=== PATIENT | female | born 1955 | race Hispanic/Latino ===

== ENCOUNTER → 2023-09-11 | Outpatient (CLI) | payer OTHER, MEDICARE ==
[2023-09-11 12:21] LABS: HEMOGLOBIN A1C 6.9 % (4.0-6.0)
[2023-09-11 12:28] LABS: CREATININE 0.6 mg/dL (0.5-1.0); POTASSIUM 3.9 mmol/L (3.5-5.1)
== END | disposition home or self-care (01) ==
LOC: LAB 08:08
PROVIDERS: ATTEND Student in an Organized Health Care Education/Training Program
DX: I10 Essential (primary) hypertension (principal); E11.65 Type 2 diabetes mellitus with hyperglycemia
CPT/HCPCS: 36415; 80048; 80061; 83036

== ENCOUNTER → 2023-09-24 | Outpatient (CLI) | payer OTHER, MEDICARE | END | disposition home or self-care (01) | LOC: RAH 12:35 | PROVIDERS: ATTEND Student in an Organized Health Care Education/Training Program | DX: R07.9 Chest pain, unspecified (principal) | CPT/HCPCS: 93306 ==

== ENCOUNTER → 2023-10-22 | Outpatient (CLI) | payer OTHER, MEDICARE ==
[2023-10-22 10:21] LABS: CREATININE 0.7 mg/dL (0.5-1.0); POTASSIUM 4.6 mmol/L (3.5-5.1)
[2023-10-22 10:22] LABS: HEMOGLOBIN A1C 6.7 % (4.0-6.0)
== END | disposition home or self-care (01) ==
LOC: LAB 09:20
PROVIDERS: ATTEND Student in an Organized Health Care Education/Training Program
DX: E11.65 Type 2 diabetes mellitus with hyperglycemia (principal); I10 Essential (primary) hypertension
CPT/HCPCS: 36415; 80048; 80061; 83036

== ENCOUNTER → 2023-10-29 | Outpatient (CLI) | payer OTHER, MEDICARE ==
[~2023-10-29] MED LIST: IOHEXOL 350 MG/ML 100ML INFUS..BTL IV ONE
== END | disposition home or self-care (01) ==
LOC: RAH 09-16 10:09
PROVIDERS: ATTEND Student in an Organized Health Care Education/Training Program
DX: I25.10 Atherosclerotic heart disease of native coronary artery without angina pectoris (principal); R07.9 Chest pain, unspecified; M47.815 Spondylosis without myelopathy or radiculopathy, thoracolumbar region
CPT/HCPCS: 75574; Q9967

== ENCOUNTER → 2024-05-26 | Outpatient (CLI) | payer OTHER, MEDICARE ==
[~2024-05-26] MED LIST changes: +AEC81 PO; +ATOR40TA71 PO; +ESCI-8 PO; +GABA-529 PO; +GARL500C9 PO; +GLIM4TAB36 PO; +INSU300I SQ; +LISI10TA24 PO; +METF-446 PO; +METO-408 PO; +SEMA1PEN3 SQ; +TOTAL BEETS PO
--- NOTE | 2024-05-26 14:15 | HMCIMG ---
CT HEAD/BRAIN W/WO CONTRAST HISTORY: Headache COMPARISON: None TECHNIQUE: Multiple sequential axial images of the head were obtained from the base of the skull through vertex. Patient was given 100 cc of Isovue through intravenous route. FINDINGS: The ventricles and extraventricular CSF spaces are dilated consistent with cerebral atrophy. Nonspecific white matter changes seen. No mass lesion or abnormal enhancement is seen. There is no midline shift, mass effect or herniation. No acute intracranial bleed is seen. Visualized portion of the paranasal sinuses are grossly within normal limits. IMPRESSION: 1. No acute intracranial bleed is seen. 2. Atrophy with white matter changes. No abnormal enhancement is seen. CT was performed with one or more following dose reduction techniques: automated exposure control, adjustment of the mA and kv according to patient's size, or use of a iterative reconstruction technique.
== END | disposition home or self-care (01) ==
LOC: RAH 12:30
PROVIDERS: ATTEND Family Medicine
DX: G31.89 Other specified degenerative diseases of nervous system (principal); R90.82 White matter disease, unspecified; R51.9 Headache, unspecified; Z87.828 Personal history of other (healed) physical injury and trauma
CPT/HCPCS: 70470; Q9967

== ENCOUNTER → 2024-08-21 | Outpatient (CLI) | payer OTHER, MEDICARE ==
[~2024-08-21] MED LIST changes: -IOHEXOL 350 MG/ML 100ML INFUS..BTL IV ONE
--- NOTE | 2024-08-25 10:06 | HMCSR ---
APPROVED REPORT EXAM: Two-dimensional and M-mode echocardiogram with Doppler and color Doppler. INDICATION ICD: R07.89 Other chest pain 2D Dimensions RVDd3.9 cmLVEF(%)74.7 (>50%)LVEF(%, simp.)58 % IVSd0.9 (0.7-1.1cm)FS(%)43 %LA ESV INDEX (BP)43.97 mL/m2 LVDd4.2 (3.8-5.6cm)LA (2D)4.4 (1.6-4.0cm) PWd1.1 (0.7-1.1cm)Ao Root(2D)2.9 (2.0-3.7cm) IVSs1.1 cmLVOT diam1.9 (1.8-2.4cm) LVDs2.4 (2.5-4.0cm)IVC diam1.2 cm PWs1.8 cm M-Mode Dimensions EPSS0.6 cm LA (MM)5.4 (1.6-4.0cm) Ao Root(MM)3.1 (2.0-3.7cm) Aortic Valve AoV Vmax1.5 m/[place] Peak GR9.3 mmHgLVOT Vmax1.1 m/s AoV VTI0.3 mAo Mean GR5.3 mmHgLVOT VTI0.24 m MATY (VMAX)2.0 cm2AVA (VTI) 2.0 cm2 Mitral Valve MV E Bdpg081.7 cm/sDECEL Gvhg101 ms MV A Nhpp624.5 cm/sP 1/2 T84 ms E/A ratio0.9MVA (PHT)2.6 cm2 TDI E/E' Wximko53.8E/E' Qmcbnzh58.8 Medial E' Peak V6.00 cm/sLateral E' Peak V6.00 cm/s Pulmonary Valve PV Vmax1.0 m/s Tricuspid Valve TR Vmax2.5 m/sRVSP24.4 mmHg TR Peak GR24.4 mmHg Left Ventricle The left ventricle is normal size. There is normal LV segmental wall motion. Mild concentric left peter tricular hypertrophy. The LVEF is > 55%. Stage II, diastolic dysfunction. Right Ventricle The right ventricle is normal size. The right ventricular systolic function is normal. Atria The left atrium is moderately dilated. . The right atrium size is normal. Aortic Valve Aortic valve is trileaflet. Aortic valve leaflets are thickened and calcified. No aortic regurgitatio n is present. There is no aortic valvular stenosis. Mitral Valve The mitral valve is mildly thickened/calcified and opens well. There is trace mitral valve regurgitat ion noted. There is no mitral valve stenosis. Tricuspid Valve The tricuspid valve is normal in structure. There is trace of tricuspid valve regurgitation noted. Pulmonic Valve The pulmonary valve is normal in structure. There is no pulmonic valvular regurgitation. Great Vessels The aortic root is normal in size. The IVC is normal in size and collapses >50% with inspiration. Pericardium There is no pericardial effusion. Other Information Quality : Adequate Conclusion The left ventricle is normal size. The LVEF is > 55% with normal LV segmental wall motion. Mild concentric left ventricular hypertrophy with Stage II, diastolic dysfunction. The right ventricular systolic function is normal. The left atrium is moderately dilated. No hemodynamically significant valvular abnormalities. There is no pericardial effusion.
== END | disposition home or self-care (01) ==
LOC: SHCH 10:46
PROVIDERS: ATTEND Student in an Organized Health Care Education/Training Program
DX: I08.0 Rheumatic disorders of both mitral and aortic valves (principal); R07.89 Other chest pain
CPT/HCPCS: 93306